=== PATIENT | male | born 1965 | race Caucasian/White ===

== ENCOUNTER → 2018-01-29 | Outpatient (CLI) | payer OTHER ==
--- NOTE | 2018-01-29 17:27 | DIAGNOSTIC IMAGING REPORT ---
MRI OF THE LUMBAR SPINE WITHOUT IV CONTRAST CLINICAL HISTORY: Lumbar stenosis. COMPARISON STUDY: No priors. TECHNIQUE: MRI of the lumbar spine is performed utilizing various T1 and T2-weighted sequences in the axial and sagittal planes. IV contrast was not administered for this examination. FINDINGS: Lumbar spine: A hemitransitional lumbosacral vertebral body will be labeled as S1 for the purposes of today's examination. Vertebral body height and alignment are maintained throughout the lumbar spine. There is straightening of the lumbar lordosis. The transverse and spinous processes appear intact. There is no evidence of spondylolysis. Mild degenerative endplate edema is seen at L4-L5. Marrow signal intensity is heterogeneous. Intervertebral discs: There is degenerative disc desiccation seen throughout the lumbar spine. Mild loss of height is seen at L5-S1. Spinal cord: The visualized spinal cord is normal in morphology and signal intensity. The conus medullaris terminates at the level of L1. The nerve roots of the cauda equina are normal in morphology. L1-L2: This is only seen on the sagittal sequences. The central canal and neural foramina appear widely patent. L2-L3: Unremarkable. L3-L4: Unremarkable. L4-L5: Unremarkable. L5-S1: There is posterior disc bulge eccentric to the right. Annular fissure is noted. This causes mild acquired compromise of the central canal with a minimum AP diameter of 7.5 mm. This causes right-sided subarticular stenosis and impinges on the exiting right L5 and the transiting right S1 nerve roots. The neural foramina are patent. Sacrum: The visualized sacrum is normal in morphology and signal intensity. Soft tissues: The paraspinous soft tissues are within normal limits. The partially imaged retroperitoneal structures are grossly unremarkable but incompletely assessed. IMPRESSION: 1. There is a posterior disc bulge eccentric to the right at L5-S1. This impinges on the exiting right L5 and the transiting right S1 nerve roots. 2. Mild spondylotic change at additional levels as above. See discussion for [id number] analysis. 3. Marrow signal intensity is slightly heterogeneous. No destructive bony process is identified. Dictated: 01/29/2018 4:11 PM Transcribed: 01/29/2018 5:26 PM Eddie Electronically signed by: Wade Golden M.D. 01/29/2018 5:31 PM Dictated Date/Time: 01/29/2018 4:11 PM
== END | disposition home or self-care (01) ==
LOC: C.MRIBC 15:16
PROVIDERS: ATTEND Orthopaedic Surgery Orthopaedic Surgery of the Spine
DX: M99.73 Connective tissue and disc stenosis of intervertebral foramina of lumbar region (principal); M51.17 Intervertebral disc disorders with radiculopathy, lumbosacral region

== ENCOUNTER 2018-02-27 08:43 | Observation (INO) | payer OTHER ==
[2018-02-18 09:59] VITALS: BMI 25.0
--- NOTE | 2018-02-18 10:27 | PAT Medication Instructions ---
Service Date Feb 18, 2018. Current Home Medication List Acetaminophen (Tylenol), 1,000 MG PO Q6 PRN for Pain Medication Instructions For Your Scheduled Surgery - Take the following medications the morning of surgery with a sip of water: Acetaminophen (Tylenol), 1,000 MG PO Q6 PRN for Pain (if needed, must be taken at least four hours before surgery) - Take the following medications as scheduled the night before surgery: Acetaminophen (Tylenol), 1,000 MG PO Q6 PRN for Pain (if needed) If you have any questions please call us at [phone] or [phone] or [phone]
[2018-02-18 11:37] LABS: BASO % 0.1 %; BASO ABS # 0.01 K/uL (0-0.2); EOS % 0.8 %; EOS ABS # 0.07 K/uL (0-0.5); HEMATOCRIT 40.8 % (42-52); HEMOGLOBIN 14.4 g/dL (14.0-18.0); IG# 0.02 K/uL (0.00-0.02); LYMPH % 36.5 %; LYMPH ABS # 3.31 K/uL (1.2-3.4); MEAN CELL VOLUME 97.6 fL (80-100); MEAN CORPUSCULAR HEMOGLOBIN 34.4 pg (25-34); MEAN CORPUSCULAR HGB CONC 35.3 g/dl (32-36); MONO % 6.6 %; NEUT % 55.8 %; NEUT ABS # 5.07 K/uL (1.4-6.5); PLATELET COUNT 280 K/uL (130-400); RED CELL DISTRIBUTION WIDTH CV 14.2 % (11.5-14.5); RED CELL DISTRIBUTION WIDTH SD 50.8 fL (36.4-46.3); WHITE BLOOD COUNT 9.08 K/uL (4.8-10.8)
--- NOTE | 2018-02-18 11:42 | DIAGNOSTIC IMAGING REPORT ---
CHEST 2 VIEWS ROUTINE CLINICAL HISTORY: PAT preoperative COMPARISON STUDY: No previous studies for comparison. FINDINGS: The bones soft tissues and hemidiaphragms are normal. The cardiomediastinal silhouette is normal. The lungs are clear. The pulmonary vasculature is normal. IMPRESSION: Negative chest. The above report was generated using voice recognition software. It may contain grammatical, syntax or spelling errors. Electronically signed by: Eulogio Madrigal M.D. 02/18/2018 11:41 AM Dictated Date/Time: 02/18/2018 11:40 AM
[2018-02-18 11:46] LABS: CREATININE 0.89 mg/dl (0.60-1.40); POTASSIUM 4.3 mmol/L (3.5-5.1)
--- NOTE | 2018-02-26 17:09 | HISTORY & PHYSICAL EXAMINATION ---
DATE OF ADMISSION: 02/27/2018 CHIEF COMPLAINT: Back and lower extremity difficulty, paresthesias, difficulty walking, limping and pain. HISTORY OF PRESENT ILLNESS: Ck is delightful. He is 52. He has a disc herniation of the spine at L5-S1 with some mild instability. He is here for elective surgery. Problems have been ongoing now to his hip, lower extremity and foot since 05/2017. He has trouble with limping and weakness. He has failed conservative management. PAST MEDICAL HISTORY: No history of hypertension, diabetes, heart disease. No asthma, kidney disease, carcinoma. PAST SURGICAL HISTORY: Hernia. SOCIAL HISTORY: He is , 4 grown children. No alcohol, tobacco. Moderately active. REVIEW OF SYSTEMS: Twelve system review no fevers, sweats, chills. Ear, nose and throat negative. Denies chest pain, palpitations. No asthma, wheezing, shortness of breath. No nausea, vomiting, urgency, frequency. No depression or confusion. He has joint pain, tingling, numbness and weakness. No diabetes or thyroid, no easy bruisability. No immune deficiency. MEDICATIONS: Hydrocodone for pain and Motrin. PHYSICAL EXAMINATION: GENERAL: He is 5' 5", 150 pounds. He is in distress. HEENT: Essentially normal. Pupils react to light and accommodation. Ear, nose and throat clear. VITAL SIGNS: Blood pressure 140/80, pulse 80. Afebrile. CARDIAC: Normal S1, S2, sinus rhythm. LUNGS: Clear to auscultation. No rales, rhonchi, wheezing. ABDOMEN: Soft, nontender, bowel sounds present. EXTREMITIES: Intact x4. He has weakness of extension of the cervical spine. Weakness of dorsiflexion. NEUROLOGIC: He has numbness in the L5 and S1 distribution on the right hand side. He has positive straight leg raising. He has gait abnormality. He has a progressive deficit. He has no upper motor neuron issues. Images demonstrate spinal stenosis and disc herniation, degenerative changes and foraminal stenosis, slight degenerative scoliosis. PLAN: Includes a discectomy lumbar spine, L5-S1, possible posterior lumbar interbody fusion.
[~2018-02-27] VITALS: Ht 167.6 cm; Wt 70.4 kg
[2018-02-27] VITALS (9 sets, daily range): BP systolic 110–128; BP diastolic 66–72; PULSE 65–74; TEMP 36.4–36.9; O2SAT 96–100; Ht 167.6 cm; Wt 70.4 kg
[~2018-02-27 08:43] MED LIST: ACET-1256 PO; CEFAZOLIN 2000MG IV PUSH 15 ML IV SCH; LACTATED RINGER'S 1000ML 1,000 ML IV SCH; NSS 1000ML IV SCH
[2018-02-27] MEDS ORDERED: VANCOMYCIN HCL 1000MG/20ML VIAL ONE (10:24)
[2018-02-27] MEDS ORDERED: THROMBIN FOR SOLN 20000 UNIT KIT ONE (10:24)
[2018-02-27] MEDS ORDERED: GELATIN SPONGE SZ 100 ONE (10:24)
[2018-02-27] MEDS ORDERED: BACITRACIN 50000 UNIT VIAL ONE (10:24)
[2018-02-27] MEDS ORDERED: BUPIVACAINE/EPINEPHRINE 0.5% MPF 1:200,000 30 ML VIAL ONE (10:25)
[2018-02-27] MEDS ORDERED: DEXAMETHASONE SOD INJ 4 MG/ML VIAL ONE (10:38)
[2018-02-27] MEDS ORDERED: MIDAZOLAM HCL 1 MG/ML 2ML VIAL ONE (10:38)
[2018-02-27] MEDS ORDERED: ONDANSETRON INJ 2 MG/ML 2 ML VIAL ONE (10:38)
[2018-02-27] MEDS ORDERED: GLYCOPYRROLATE INJ 0.2 MG/ML VIAL ONE (10:38)
[2018-02-27] MEDS ORDERED: PROPOFOL IV EMULSION 10 MG/ML 20 ML VIAL ONE (10:38)
[2018-02-27] MEDS ORDERED: LIDOCAINE HCL 2% 2 ML VIAL (20MG/ML) ONE (10:38)
[2018-02-27] MEDS ORDERED: NEOSTIGMINE METHYLSULFATE 1 MG/ML 10ML VIAL ONE (10:38)
[2018-02-27] MEDS ORDERED: FENTANYL CITRATE INJ 50 MCG/1 ML 2 ML VIAL ONE ×2 (10:39→12:36)
--- NOTE | 2018-02-27 10:54 | History & Physical Bridge Note ---
H&P Re-Evaluation Bridge Note: I have examined the patient, reviewed the History & Physical and in the interval since the performance of the History & Physical I have noted the following changes of clinical significance: No changes noted
[2018-02-27] MEDS ORDERED: EpHEDrine SULFATE 50MG/5ML SYR ONE (11:58)
--- NOTE | 2018-02-27 12:14 | DIAGNOSTIC IMAGING REPORT ---
SPINE ONE VIEW, ANY LEVEL HISTORY: Laminectomy. FLUOROSCOPY TIME: 3 seconds. FINDINGS: Intraoperative fluoroscopy was provided for the lumbar spine. 1 fluoroscopic spot images were obtained. IMPRESSION: Fluoroscopy provided for a lumbar laminectomy and fusion. The above report was generated using voice recognition software. It may contain grammatical, syntax or spelling errors. Electronically signed by: Eulogio Madrigal M.D. 02/27/2018 12:12 PM Dictated Date/Time: 02/27/2018 12:11 PM
--- NOTE | 2018-02-27 12:19 | [facility] Post Operative Brief Note ---
Immediate Operative Summary Operative Date February 27, 2018. Pre-Operative Diagnosis Spinal stenosis and disc herniation, degenerative changes and foraminal stenosis Post-Operative Diagnosis SAME PREOP Procedure(s) Performed L5-S1 MICRODISCECT[address] Sur[address] Dr. Astorga Bilingual Customer Service Surgeon(s) Parminder Painter PA-C Estimated Blood Loss 50ml Findings Consistent with Post-Op Diagnosis Specimens none per surgeon Anesthesia Type General Complication(s) none
[2018-02-27] MEDS ORDERED: LORAZEPAM INJ 1 MG in SYRINGE 0 ML IV PRN (12:30)
[2018-02-27] MEDS ORDERED: HYDROmorphone INJ 0.5 MG/0.5 ML SYR IV PRN (12:30)
[2018-02-27] MEDS ORDERED: HYDROmorphone INJ 2 MG/ML SYR/VIAL IV PRN ×2 (12:30)
[2018-02-27] MEDS ORDERED: METOCLOPRAMIDE HCL INJ 5 MG/ML 2 ML VIAL IV PRN (12:30)
[2018-02-27] MEDS ORDERED: MAGNESIUM HYDROXIDE SUSP 30 ML UDC PO PRN (12:30)
[2018-02-27] MEDS ORDERED: ACETAMINOPHEN 325 MG TAB PO PRN (12:30)
[2018-02-27] MEDS ORDERED: LABETALOL HCL IV 5 MG/ML 20ML IV PRN (12:30)
[2018-02-27] MEDS ORDERED: PROMETHAZINE HCL INJ 12.5 MG in SODIUM CHLORIDE 0.9% 50ML 50 ML IV PRN ×4 (12:30)
[2018-02-27] MEDS ORDERED: ATROPINE SULFATE 0.1 MG/ML 5ML SYR IV PRN (12:30)
[2018-02-27] MEDS ORDERED: ONDANSETRON INJ 2 MG/ML 2 ML VIAL IV PRN ×2 (12:30)
[2018-02-27] MEDS ORDERED: EpHEDrine SULFATE INJ 50 MG/ML AMP IV PRN (12:30)
[2018-02-27] MEDS ORDERED: NALOXONE HCL 0.4 MG/1 ML VIAL/CARP IV PRN (12:30)
[2018-02-27] MEDS ORDERED: OXYCODONE/ACETAMINOPHEN 5-325 TAB PO PRN ×2 (12:30)
[2018-02-27] MEDS ORDERED: LORAZEPAM 1 MG TAB PO PRN (12:30)
[2018-02-27] MEDS ORDERED: HYDROmorphone INJ 0.5 MG/0.5 ML SYR ONE ×2 (12:42→12:54)
[2018-02-27 12:48] LABS: HEMATOCRIT 36.6 % (42-52); HEMOGLOBIN 12.8 g/dL (14.0-18.0)
--- NOTE | 2018-02-27 13:25 | OPERATIVE REPORT ---
DATE OF OPERATION: 02/27/2018 PREOPERATIVE DIAGNOSIS: Disk herniation, lumbar spine, L5-S1. POSTOPERATIVE DIAGNOSIS: Disk herniation, lumbar spine, L5-S1. PROCEDURE: Includes lumbar spine hemilaminotomy and discectomy, L5-S1, right side. SURGEON: Josué Astorga DO PRECISION THREAD GRINDER OPERATOR: Parminder Painter PA-C. COMPLICATIONS: None. ESTIMATED BLOOD LOSS: 50 mL. ANESTHETIC: General. DESCRIPTION OF PROCEDURE: The patient was taken to the operating room. A general intubated anesthetic provided to the patient, placed on the Rubens table. He was scrubbed, prepped and draped sterilely. Using x-ray guidance, we came right down on the L5-S1 interspace of the lumbar spine. We first did an upgoing laminotomy and downgoing foraminotomy. We took off ligamentum flavum. I was able to complete the foraminotomy. We retracted the dura and nerve root in medial direction, did a formal discectomy with various sized pituitaries. I was pleased with the amount of disk material removed. We irrigated, closed in layers over a Hemovac drain and vancomycin powder. Sterile dressing applied. The patient returned to recovery satisfactory and stable. Sponge and needle counts correct. No complications. I attest to the content of the Intraoperative Record and any orders documented therein. Any exception s are noted below.
[2018-02-27] MEDS ORDERED: ESMOLOL HCL 10 MG/ML 10 ML VIAL ONE (13:36)
[2018-02-27] MEDS ORDERED: FLUMAZENIL 0.1 MG/1 ML 10 ML VIAL IV ONE (13:36)
--- NOTE | 2018-02-27 13:42 | Anesthesiology Progress Note ---
Anesthesia Post Op Note Date & Time February 27, 2018 at 13:42 Vital Signs Pain Intensity: 4 Vital Signs Past 12 Hours Date Time Temp Pulse Resp B/P (MAP) Pulse Ox O2 Delivery O2 Flow Rate FiO2 02/27/18 13:30 71 15 122/71 100 Nasal Cannula 4 02/27/18 13:15 36.0 72 12 116/69 100 Nasal Cannula 4 02/27/18 13:05 74 15 118/64 100 Nasal Cannula 4 02/27/18 12:55 75 15 133/71 99 Nasal Cannula 4 02/27/18 12:45 76 24 129/73 99 Oxymask 10 02/27/18 12:35 85 18 132/89 98 Oxymask 10 02/27/18 12:25 36.3 89 16 132/59 100 Oxymask 10 02/27/18 09:16 36.8 65 18 128/68 (88) 97 Room Air Notes Mental Status: alert / awake / arousable, participated in evaluation Pt Amnestic to Procedure: Yes Nausea / Vomiting: adequately controlled Pain: adequately controlled Airway Patency, RR, SpO2: stable & adequate BP & HR: stable & adequate Hydration State: stable & adequate Anesthetic Complications: no major complications apparent
[2018-02-27] MEDS ORDERED: SODIUM CHLORIDE 0.9% 1000ML 1,000 ML IV SCH (15:00)
[2018-02-27] MEDS ORDERED: IV FLUIDS COMPLETED PRN (15:15)
[2018-02-27] MEDS: KETOROLAC TROMETHAMINE 30 MG/ML VIAL IV SCH ×2 (15:41→21:55)
[2018-02-27] MEDS: CEFAZOLIN IV 1,000 MG in SYRINGE 0 ML IV SCH (17:43)
[2018-02-27] MEDS: DEXAMETHASONE INJ 10 MG in SYRINGE 0 ML IV SCH (18:26)
[2018-02-28] MEDS: DEXAMETHASONE INJ 10 MG in SYRINGE 0 ML IV SCH ×2 (01:13→09:36)
[2018-02-28] MEDS: CEFAZOLIN IV 1,000 MG in SYRINGE 0 ML IV SCH ×2 (01:18→09:36)
[2018-02-28] MEDS ORDERED: NURSING VERBAL MED ORDER ONE (02:15)
[2018-02-28 03:45] VITALS: BP 106/58; PULSE 75; TEMP 36.7; O2SAT 95
[2018-02-28] MEDS: KETOROLAC TROMETHAMINE 30 MG/ML VIAL IV SCH ×2 (04:05→09:36)
[2018-02-28] MEDS ORDERED: BISACODYL 10 MG SUPP PR PRN (06:00)
[2018-02-28] MEDS ORDERED: BISACODYL 5 MG TABEC PO PRN (06:00)
[2018-02-28 07:37] VITALS: BP 124/77; PULSE 78; TEMP 36.7; O2SAT 95
--- NOTE | 2018-02-28 07:57 | Anesthesiology Progress Note ---
Anesthesia Post Op Note Date & Time February 28, 2018 at 07:56 Vital Signs Pain Intensity: 0.0 Vital Signs Past 12 Hours Date Time Temp Pulse Resp B/P (MAP) Pulse Ox O2 Delivery O2 Flow Rate FiO2 02/28/18 07:37 36.7 78 18 124/77 (93) 95 Room Air 02/28/18 03:45 36.7 75 16 106/58 (74) 95 Room Air 02/28/18 00:00 Room Air 02/27/18 23:52 36.6 65 16 128/70 (89) 98 Room Air Notes Mental Status: alert / awake / arousable, participated in evaluation Pt Amnestic to Procedure: Yes Nausea / Vomiting: adequately controlled Pain: adequately controlled Airway Patency, RR, SpO2: stable & adequate BP & HR: stable & adequate Hydration State: stable & adequate Anesthetic Complications: no major complications apparent
--- NOTE | 2018-02-28 08:03 | Discharge Instructions ---
Discharge Instructions Date of Service February 28, 2018. Admission Reason for Admission: Disc Herniation Discharge Discharge Diagnosis / Problem: same Discharge Goals Goal(s): Improve function Activity Recommendations Activity Limitations: as noted below Lifting Limitations: no more than 5 pounds Exercise/Sports Limitations: until after follow-up appointment May Resume Sexual Activity: after follow-up appointment Shower/Bathe: keep incision dry Driving or Machine Use: HOME, REST, RECOVER d/c teds and scds . Instructions / Follow-Up Instructions / Follow-Up MEDICATIONS: Please take your prescriptions as instructed at your pre-op appointment. SPECIAL CARE: The following information is intended to answer some of the common questions and concerns regarding your surgery. Each patient is an individual and receives individual counselling throughout the course of treatment, from diagnosis to surgery all the way through recovery. What follows is not an exhaustive list, but should be a useful guide to some of the common questions and concerns patients have regarding their surgeries. These are not provided to keep you from calling us; rather, they give you something accurate and concrete to reference as you recover from your procedure. If you need us, we are available to you. As always, if you are not sure about something, call us at [phone]. MEDICAL EMERGENCIES: For these conditions, call 911 or go to your local hospital-based Emergency Department - not [facility] or equivalent. * Paralysis * Severe chest pain or difficulty breathing * Swelling or redness of either leg Spine procedures can be rather complex and though complications are rare, they do occur. In such cases, effective advice regarding emergency situations cannot always be addressed over the telephone. You may be referred to the emergency department for more effective management of your problem. Activity Limitations: It is important to give your body time to heal, so please limit your activities : * In general, don't do anything that moves your spine too much. You should avoid contact sports, twisting or heavy lifting while you recover. * 5-10 pounds is all you should attempt to lift. * You should not plan on driving for approximately 3 weeks and you should avoid traveling more than 30-45 minutes at a time. Longer trips should be broken down with walking breaks spaced appropriately. * Physical therapy is not usually required. * Walking and good posture practices will help you recover and regain your function. * Avoid straining or sudden changes in position. * In general, the goal is to take it easy and recover. Don't cause any new problems. Just relax. Showers: * Do not take a bath, use a Jacuzzi or hot tub or otherwise submerge your incision. * It is usually safe to take a shower 4-5 days after your surgery. * Your incision does not require any special creams or ointments. * Simply clean it with soap and water, dry and re-dress with a clean bandage afterwards. Incision: * Keep incision clean, dry and protected until your first follow-up appointment. * Some amount of drainage and redness is normal. Any drainage should be fairly clear and not have a foul odor. * If you feel anything is wrong or you have excessive drainage, please call us. * Your stitches and jahaira will be removed 10-14 days after your surgery. At the time of your first post-op visit. * Neck surgeries are typically closed with a suture underneath the skin. The steri-strips over the incision should be maintained until we see you in the office. Bracing: * You may be provided with a back or neck brace to encourage good posture and prevent injury. It will remind you not to do too much as you heal and will alert others to the fact that you have had a surgery. * Back braces may be removed for showers and when you are resting at home. They must be worn when you are walking around for any period of time or for travel. * For neck surgery, you will likely be provided with two cervical collars. The soft collar ([place] or foam rubber) is worn most commonly throughout the day and while sleeping. The plastic collar (provided at the hospital) is for showering/bathing. * Except while eating, collars should remain in place. More specifically, bracing is provided for a purpose and should be worn. * Please obtain your brace or collars prior to your operation and bring them to the hospital with you on the day of surgery. * You should also bring your collars to your post-op appointment with Dr. Astorga. You should always take good care of your body and practice healthy habits, especially following surgery. You should: * Follow your doctor's treatment plan * Sit and stand properly with good posture (ears over shoulders, shoulders over hips) Don't slouch * Learn to lift correctly * Exercise regularly (low-impact aerobic exercise is especially good, but check with your doctor first) * Generally, be up and walking for 5-10 minutes at a time at least 3-4 times per day from the day you get home * Increasing walking to tolerance until you can walk for 20-30 minutes at a time * Attain and maintain a healthy body weight * Eat healthy foods ( a well-balanced, low-fat diet rich in fruits and vegetables) and get enough calcium * Avoid excessive use of alcohol When to call our office - If you notice any of the following: * Increased pain not relieve by pain medicine * Fevers greater then 100 degrees F, chills or flu symptoms * Increased redness around incision * Drainage from the incision that is not clear * Any foul smelling drainage * Swelling or fluid collection beneath the skin Miscellaneous: * In the hospital, you may be given a walker or cane for support while walking. These are temporary needs and are intended to prevent injuries due to falls. You may discontinue them when you feel strong and steady enough on your feet. * Sleep in a comfortable position. We find that many patients find a lounge chair or recliner with several pillows to be beneficial in the early post-operative period. * The support stockings should be used for 7-10 days and may be discontinued when you are back to walking more and conducting usual household activities. No problem is insignificant. We are here to help you and get you well. Contact us at [phone]. Definitions: Foraminotomy: If part of the disc or a bone spur (osteophyte) is pressing on a nerve as it leaves the vertebra (through an exit called the foramen), a foraminotomy may be done. Otomy means "to make an opening." A foraminotomy is making the opening of the foramen larger, so the nerve can exit without being compressed. Laminotomy: Similar to the foraminotomy, a laminotomy makes a larger opening, this time in your bony plate protecting your spinal canal and spinal cord (the lamina). The lamina may be pressing on your nerve, so the surgeon may make more room for the nerves using a laminotomy. Laminectomy: Sometimes, a laminotomy is not sufficient. The surgeon may need to remove all or part of the lamina. This procedure is called a laminectomy. This can often be done at many levels without any harmful effects. Current Hospital Diet Patient's current hospital diet: Regular Diet Discharge Diet Recommended Diet: Regular Diet Procedures Procedures Performed: L5-S1 MICRODISCECTOMY Pending Studies Studies pending at discharge: no Medical Emergencies . Who to Call and When: Medical Emergencies: If at any time you feel your situation is an emergency, please call 911 immediately. . Non-Emergent Contact Non-Emergency issues call your: Primary Care Provider . "Provider Documentation" section prepared by Josué Astorga. .
[2018-02-28] MEDS ORDERED: POLYETHYLENE (MIRALAX) 17 GM PACK PO SCH (09:00)
--- NOTE | 2018-02-28 10:02 | DISCHARGE SUMMARY ---
DATE OF DISCHARGE: 02/28/18 Ck is improved, stable. Still numbness to his lower extremities. Denies any chest pain, fever, sweats, chills. No confusion. No calf tenderness. ASSESSMENT: Status post discectomy lumbar spine. PLAN: Includes discharge later today. Instructions, precautions, warnings given to the patient in the office and here. He has a followup in 14 days. He has a prescription for [place] on his chart and a walker if needed.
[2018-02-28 10:45] VITALS: BP 127/74; PULSE 76; O2SAT 96
[2018-02-28 12:16] VITALS: BP 127/74; PULSE 76; TEMP 36.7; O2SAT 96
[2018-02-28] MEDS ORDERED: HYDR-4079 PO (12:16)
== END 2018-02-28 12:55 | disposition home or self-care (01) ==
LOC: C.ACU 08:43 → C.3E 10:00 → ENRESERV 13:13
PROVIDERS: ADMIT Orthopaedic Surgery Orthopaedic Surgery of the Spine; ATTEND Orthopaedic Surgery Orthopaedic Surgery of the Spine
DX: M51.17 Intervertebral disc disorders with radiculopathy, lumbosacral region (principal); G89.29 Other chronic pain; Z98.890 Other specified postprocedural states; F17.200 Nicotine dependence, unspecified, uncomplicated